=== PATIENT | female | born 1980 | race Caucasian/White ===

== ENCOUNTER → 2017-05-15 | Outpatient (CLI) | payer OTHER | LOC: BMCIMAGING 09:10 | PROVIDERS: ATTEND Orthopaedic Surgery | PROC: 3E0U33Z Introduction of Anti-inflammatory into Joints, Percutaneous Approach (ICD-10-PCS; principal; 2017-05-15) | PROC: BQ11YZZ Fluoroscopy of Left Hip using Other Contrast (ICD-10-PCS; 2017-05-15) | DX: M25.552 Pain in left hip (principal) ==